=== PATIENT | male | born 1985 | race Caucasian/White ===

== ENCOUNTER 2017-02-13 00:55 | Emergency (ER) | payer OTHER ==
[2017-02-13 00:59] VITALS: BP 186/96; BMI 30.7
[2017-02-13] MEDS ORDERED: NS IRRIGATION 1000 ML 1,000 ML ONE (01:01)
[2017-02-13] MEDS ORDERED: ADACEL TDaP IM ONE ×2 (01:03→01:21)
[2017-02-13] MEDS ORDERED: XYLOCAINE 1 % (PLAIN) ONE (01:03)
[2017-02-13] MEDS ORDERED: BACITRACIN ZINC ONE (01:41)
[2017-02-13] MEDS ORDERED: BACTROBAN OINT TOP ONE (01:42)
--- NOTE | 2017-02-13 01:53 | DR.GENAD ---
HPI - HPI Comment HPI Comment: CUT AREA ACCIDENTALLY WITH A BLADE WHILE CUTTING PIECE OF WOOD. TD NOT UTD. - Complaint/Symptoms Chief Complaint Doctors Comments: LACERATION LEFT INDEX FINGER. Chief Complaint:: PT STATES THAT HE CUT HIS LT 2ND DIGIT ON A RAZOR BLADE AROUND 2100 TONIGHT. Self Treatment fo Chief Complaint: PT STATES HE DOES NOT KNOW WHEN HIS LAST TETNUS WAS - Nurses notes reviewed Nurses Notes Review: Yes - Source History Provided: Patient - Mode of Arrival Mode of Arrival: Ambulatory - Timing Onset of Chief Complaint: 02/13/17 Came on: Suddenly - Duration Duration: Constant Duration: Hours - Severity Severity: Moderate PMH - PMH Past Medical History: No Past Surgical History: No - Family History History of Family Medical Conditions: No - Social History Do you use any recreational Drugs:: No - infectious screening Have you traveled outside the country in the last 6 months?: No ROS - Review of Systems Constitutional: No Symptoms Reported Eyes: No Symptoms Reported ENTM: No Symptoms Reported Respiratoy: No Symptoms Reported Cardiovascular: No Symptoms Reported Gastrointestinal/Abdominal: No Symptoms Reported Genitourinary: No Symptoms Reported Neurological: No Symptoms Reported Musculoskeletal: Left, Hand Integumentary: Change in Color, Wound (LACERATION LT INDEX FINGER.) Hematologic/Lymphatic: No Symptoms Reported Endocrine: No Symptoms Reported All Other Systems: Reviewed and Negative PE - Vital Signs Vitals: Temperature 98.9 F Pulse Rate 96 Respiratory Rate 18 Blood Pressure 186/96 O2 Sat by Pulse Oximetry 99 - General Limitations: No Limitations General Appearance: Alert - Head Head Exam: Normal Inspection - Eyes Eye exam: Normal Appearance - ENT ENT Exam: Normal External Ear Exam External Ear Exam: Normal External Inspection Throat Exam: Normal Inspection - Neck Neck Exam: Trachea Midline - Chest Chest Inspection: Symmetric Chest Wall Rise - Respiratory Respiratory Exam: Normal Lung Sounds Bilat Respiratory Exam: Bilateral Clear to Auscultation - Cardiovascular Cardiovascular Exam: Regular Rate, Normal Rhythm, Normal Heart Sounds - Abdominal Exam Abdominal Exam: Normal Bowel Sounds, Soft, Distention - Extremities Extremities Exam: Tenderness (3CM LACERATION RT INDEX FINGER. BLEEDING.) - Back Back Exam: Normal Inspection - Neurologic Neurological Exam: Alert, Oriented X3 - Psychiatric Psychiatric Exam: Normal Affect, Normal Mood - Skin Skin Exam: Erythema MDM - Additional Information Additional Information Obtained From: Family - Differential Diagnosis Differential Diagnosis: LACERATION, CONTUSION,SPRAIN. Course - Treatment Treatment: SEE ORDERS. LAC CLOSE. - Education/Counseling Education/Counseling: Patient, Family, Education Educated On: Treatment, Diagnosis, Needs for Follow Up Procedures - Laceration/Wound Repair Left 1st Digit Wound Length (cm): 3 Wound's Depth, Shape: Linear Wound Explored: clean Irrigated w/ Saline (ccs): 100 Betadine Prep?: Yes Anesthesia: 1% Lidocaine Volume Anesthetic (ccs): 5 Wound Debrided: moderate Wound Repaired With: sutures Suture Size/Type: 4:0, [place] Number of Sutures: 8 Layer Closure?: No Sterile Dressing Applied?: Yes Splint Applied?: No Sling Applied?: No - Diagnosis Discharge Problem: Finger laceration Qualifiers: Encounter type: initial encounter Finger: index finger Damage to nail status: without damage Foreign body presence: without foreign body Laterality: left Qualified Code(s): S61.211A - Laceration without foreign body of left index finger without damage to nail, initial encounter - Discharge Plan Condition: Stable Prescriptions: Cephalexin [KEFLEX CAP 500 MG *] 500 mg PO TID #21 cap Ibuprofen [MOTRIN TAB 600 MG *] 600 mg PO TID PRN #20 tab PRN Reason: Pain/Inflammation - Follow ups/Referrals Follow ups/Referrals: NFD,None [Primary Care Provider] - 3 days - Instructions Instructions: Laceration Care, Adult, Ruyq-yr-Said Additional Instructions: RETURN TO ED IF WORSE. SUTURE OUT IN 10 DAYS.
== END 2017-02-13 02:00 | disposition home or self-care (01) ==
LOC: ER 00:55
PROC: 0XQPXZZ Repair Left Index Finger, External Approach (ICD-10-PCS; principal; 2017-02-13)
DX: S61.211A Laceration without foreign body of left index finger without damage to nail, initial encounter (principal); W26.0XXA Contact with knife, initial encounter; Y92.9 Unspecified place or not applicable
CPT/HCPCS: 12002; 90471; 99282; J2001